=== PATIENT | female | born 1960 | race Caucasian/White ===

== ENCOUNTER 2020-04-29 13:34 | Inpatient (IN) | payer BC, OTHER ==
[~2020-04-29] VITALS: Ht 165.1 cm; Wt 92.1 kg
[2020-04-29 13:36] VITALS: BP 209/98
[2020-04-29] MEDS ORDERED: ASA81BEC PO (13:53)
[2020-04-29] MEDS ORDERED: CARVEDILOL25 MG PO (13:55)
[2020-04-29] MEDS ORDERED: ISOSORBIDE DINI30 MG PO (13:55)
[2020-04-29] MEDS ORDERED: CALCITRIOL0.25 MCG PO (13:56)
[2020-04-29] MEDS ORDERED: FOSINOPRIL 10 M10 M1 PO (13:57)
[2020-04-29] MEDS ORDERED: FUROSEMIDE 40 M40 MG PO (13:57)
[2020-04-29] MEDS ORDERED: LANTUS SUBQ (13:57)
[2020-04-29] MEDS ORDERED: RENVELA0.8 GM PO (13:58)
[2020-04-29] MEDS ORDERED: MACROBID 100 M100 MG PO (13:59)
[2020-04-29] MEDS ORDERED: CIPRO250 M2 PO (13:59)
[2020-04-29 14:27] LABS: ABSOLUTE NEUTROPHILS 7.7 thou/uL (1.4-8.2); BASOPHILS 0.5 % (0.0-2.0); EOSINOPHILS 0.9 % (0.0-3.0); HEMATOCRIT 26.9 % (37.0-47.0); HEMOGLOBIN 9.1 gm/dL (12.0-15.0); LYMPHOCYTES 6.7 % (24.0-44.0); MCH 29.9 pg (26.0-34.0); MONOCYTES 4.9 % (1.0-8.0); PLATELET COUNT 249 thou/uL (150-400); RBC 3.05 mil/uL (4.20-5.00); WBC 8.8 thou/uL (4.0-11.0)
[2020-04-29 14:31] LABS: CALCIUM 9.3 mg/dL (8.5-10.1); CREATININE 8.1 mg/dL (0.6-1.0); POTASSIUM 5.7 mmol/L (3.5-5.1)
[2020-04-29 14:41] LABS: ALBUMIN 2.7 g/dL (3.4-5.0); TOTAL BILIRUBIN 0.3 mg/dL (0.2-1.0); TOTAL PROTEIN 7.2 g/dL (6.4-8.2)
[2020-04-29 14:48] LABS: TROPONIN-I 1.19 ng/mL (<0.06)
[2020-04-29 15:29] LABS: HCO3 14.1 mmol/L (22.0-26.0); PCO2 VENOUS 29.1 mmHg (41.0-51.0); PO2 VENOUS 70.7 mmHg (35.0-45.0)
[2020-04-30 05:06] LABS: URINE BILIRUBIN NEGATIVE (Negative); URINE BLOOD 3+ (Negative); URINE CLARITY SL CLOUDY; URINE COLOR YELLOW; URINE GLUCOSE-RANDOM* 1+ (Negative); URINE KETONES NEGATIVE (Negative); URINE NITRITE-REFLEX NEGATIVE (Negative); URINE PROTEIN (DIPSTICK) 3+ (Negative); URINE UROBILINOGEN 0.2 E.U./dl (0.2-1.0)
[2020-04-30 05:24] LABS: URINE LEUKOCYTES-REFLEX 2+ (Negative)
[2020-04-30 05:25] LABS: SQUAMOUS >10 Many /LPF (0-3)
[2020-04-30 05:26] LABS: CASTS None Seen /LPF (None Seen); CRYSTALS None Seen /LPF (None Seen)
[2020-04-30] MEDS ORDERED: IMDUR 30 MG TAB30 M1 PO (06:02)
--- NOTE | 2020-04-30 07:26 | EKG ---
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: AT : 1960 Requested By: Donis Reyes Order Number: [id number] MD: Kaleb Arnett Measurements Intervals [place] Rate: 109 P: 59 RI: 139 QRS: -38 QRSD: 139 T: 130 QT: 377 QTc: 508 Interpretive Statements Sinus tachycardia Left bundle branch block Baseline wander in lead(s) V3 No previous ECG available for comparison Electronically Signed On 04-30-2020 7:26:06 MACHINE PRINTER by Kaleb Arnett [email or web address] <ELECTRONICALLY SIGNED> By: Kaleb Arnett MD, [facility] 04/30/20 0726 1410 1410 Kaleb Arnett MD, FACC /EPI
[2020-04-30 08:18] LABS: MAGNESIUM 2.1 mg/dL (1.8-2.4)
[2020-04-30 08:20] LABS: TROPONIN-I 3.46 ng/mL (<0.06)
--- NOTE | 2020-04-30 09:06 | NUR ---
PT AGREEABLE TO IN-PATIENT STAY PER DR RICE. DR PRADO PAGED AND NOTIFIED FOR DAILYSIS TRMT. MESSAGE CONVEYED TO PT FROM JOHAN THAT DIALYSIS WILL BEGIN BETWEEN [phone] HOURS TODAY. PT TOLD THIS NURSE "I WILL NOT WAIT UNTIL THEN, I WANT TO LEAVE THIS HOSPITAL AND GO SEE MY PCP". DR SARAHI JULES MADE AWARE, STATES HE WILL COMMUNICATE WITH DR RICE.
[2020-04-30 09:17] LABS: CHOLESTEROL 213 mg/dL (<200); HDL CHOLESTEROL 42 mg/dL (>40); LDL CHOLESTEROL 118 mg/dL (<100); TC:HDL 5.1 Ratio (Not establshd); TRIGLYCERIDE 266 mg/dL (<150); VLDL 53 mg/dL (<40)
--- NOTE | 2020-04-30 09:24 | NUR ---
PT AGREEABLE TO TRANSFER TO [facility] FOR CONT. CARE AND DIALYSIS TRMT. 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
[2020-04-30 11:10] LABS: CALCIUM 9.4 mg/dL (8.5-10.1); CREATININE 8.8 mg/dL (0.6-1.0); POTASSIUM 5.5 mmol/L (3.5-5.1)
--- NOTE | 2020-04-30 13:00 | NUR ---
[facility]: ([facility]) [phone] CONFIRMED ROOM 310
--- NOTE | 2020-04-30 13:23 | NUR ---
EMS TRANSPORTATION TO [facility] ARRANGED, REPORTED THAT ETA IS "WITHIN AN HOUR". PATIENT MADE AWARE.
[2020-04-30 13:55] LABS: ALBUMIN 2.7 g/dL (3.4-5.0); CALCIUM 8.9 mg/dL (8.5-10.1); CREATININE 8.6 mg/dL (0.6-1.0); PHOSPHORUS 10.2 mg/dL (2.6-4.7); POTASSIUM 5.5 mmol/L (3.5-5.1)
[2020-04-30 15:25] VITALS: BP 136/71
== END 2020-04-30 15:58 | disposition short-term general hospital (02) | DRG 280 ==
LOC: ER 13:34 → EROBS 18:17
PROVIDERS: Emergency Medicine; Internal Medicine Cardiovascular Disease; Nurse Practitioner; ADMIT Hospitalist; ATTEND Hospitalist
PROC: 3E1M39Z Irrigation of Peritoneal Cavity using Dialysate, Percutaneous Approach (ICD-10-PCS; principal; 2020-04-30)
DX: I21.4 Non-ST elevation (NSTEMI) myocardial infarction (principal); K65.9 Peritonitis, unspecified; N18.6 End stage renal disease; I12.0 Hypertensive chronic kidney disease with stage 5 chronic kidney disease or end stage renal disease; I16.0 Hypertensive urgency; I49.5 Sick sinus syndrome; Z20.822 Contact with and (suspected) exposure to COVID-19; E87.5 Hyperkalemia; D63.8 Anemia in other chronic diseases classified elsewhere; E78.5 Hyperlipidemia, unspecified; I25.5 Ischemic cardiomyopathy; E11.22 Type 2 diabetes mellitus with diabetic chronic kidney disease; K43.9 Ventral hernia without obstruction or gangrene; Z88.0 Allergy status to penicillin; Z88.8 Allergy status to other drugs, medicaments and biological substances; Z79.82 Long term (current) use of aspirin; Z79.899 Other long term (current) drug therapy; Z95.1 Presence of aortocoronary bypass graft; Z99.2 Dependence on renal dialysis
CPT/HCPCS: 33000

== ENCOUNTER 2020-09-08 23:00 | Inpatient (IN) | payer BC, OTHER ==
[~2020-09-08] VITALS: Ht 165.1 cm; Wt 81.2 kg
--- NOTE | ~2020-09-08 | O ---
[facility] [place] [address] OPERATIVE REPORT Name: GARCIA MILIAN Room #: 450-P ADM IN M.R.#: [id number] Admission: 09/09/20 Attend Phys: Gisela Gonzalez MD Discharge: Date of : 58 Report #: [id number] THIS REPORT FOR: cc: FAM - Family physician unknown FAM - Family physician unknown Misael Cruz MD ~ DOC #: [id number] Misael Cruz MD DATE OF SERVICE: 09/09/2020 PREOPERATIVE DIAGNOSIS: Incarcerated ventral incisional hernia. POSTOPERATIVE DIAGNOSIS: Incarcerated ventral incisional hernia. PROCEDURE: Laparoscopic repair of incarcerated ventral incisional hernia with mesh. SURGEON: Misael Cruz MD ANESTHESIA: General. ESTIMATED BLOOD LOSS: Minimal. SPECIMEN: None. DESCRIPTION OF PROCEDURE: After informed consent was obtained, the patient was brought to the operating room and placed supine. SCDs were placed and working. Preoperative antibiotics were administered. General anesthesia was induced. The abdomen was prepped and draped in the usual sterile fashion. A 5 mm incision was made in the left upper quadrant. A 5 mm trocar was placed under direct vision in the left upper quadrant. Pneumoperitoneum was established. Left-sided 5 mm trocar and a right-sided 8 mm trocar was placed. The hernia defect was visualized. This measured approximately 3 cm. I was able to reduce the small bowel. This did reduce. I was able to examine the bowel completely and there was no evidence of bowel ischemia. I then inserted an 11 cm Bard Ventralight mesh. It was placed in the abdomen and brought out through the abdominal wall. It was tacked with 25 absorbable tacks to cover the defect widely. A transfascial [place] suture was placed in the superior aspect of the mesh using a suture passer. The ports were then removed under direct vision. The skin was closed with 4-0 Monocryl. Incisions were dressed with Steri-Strips. COMPLICATIONS: None. DISPOSITION: The patient was taken to recovery in satisfactory condition. [address] [address] OPERATIVE REPORT Name: GARCIA MILIAN Room #: 450- ADM IN M.R.#: [id number] Admission: 09/09/20 Attend Phys: Gisela Gonzalez MD Discharge: Date of : 58 Report #: [id number] Misael Cruz MD JDP/KDA By: [id number] Misael Cruz MD /nt
[~2020-09-08 23:00] MED LIST: ASA81BEC PO; CALCITRIOL0.25 MCG PO; CARVEDILOL25 MG PO; CIPRO250 M2 PO; FOSINOPRIL 10 M10 M1 PO; FUROSEMIDE 40 M40 MG PO; IMDUR 30 MG TAB30 M1 PO; ISOSORBIDE DINI30 MG PO; LANTUS SUBQ; MACROBID 100 M100 MG PO; RENVELA0.8 GM PO
[2020-09-08 23:02] VITALS: BP 159/79
[2020-09-08 23:16] LABS: ABSOLUTE NEUTROPHILS 6.9 thou/uL (1.4-8.2); BASOPHILS 1.1 % (0.0-2.0); EOSINOPHILS 2.6 % (0.0-3.0); HEMATOCRIT 28.4 % (37.0-47.0); HEMOGLOBIN 9.9 gm/dL (12.0-15.0); LYMPHOCYTES 17.2 % (24.0-44.0); MCHC 34.8 g/dL (28.0-37.0); MCV 89.1 fL (80.0-100.0); MONOCYTES 12.2 % (1.0-8.0); PLATELET COUNT 355 thou/uL (150-400); POLYS 66.9 % (36.0-66.0); RBC 3.19 mil/uL (4.20-5.00); RDW 15.9 % (10.5-14.5); WBC 10.4 thou/uL (4.0-11.0)
[2020-09-08 23:22] LABS: ANION GAP 11 mmol/L (7-16); BUN 21 mg/dL (7-18); CALCIUM 8.4 mg/dL (8.5-10.1); CHLORIDE 94 mmol/L (98-107); CO2 28 mmol/L (21-32); CREATININE 4.7 mg/dL (0.6-1.0); GLUCOSE 179 mg/dL (74-106); POTASSIUM 3.2 mmol/L (3.5-5.1); SODIUM 133 mmol/L (136-145)
[2020-09-08 23:33] LABS: ALBUMIN 2.4 g/dL (3.4-5.0); LIPASE 41 U/L (73-393); SGOT 14 U/L (15-37); SGPT 10 U/L (30-65); TOTAL BILIRUBIN 0.4 mg/dL (0.2-1.0); TOTAL PROTEIN 5.8 g/dL (6.4-8.2); TROPONIN-I <0.06 ng/mL (<0.06)
[2020-09-09 02:41] LABS: URINE BILIRUBIN NEGATIVE (Negative); URINE BLOOD 1+ (Negative); URINE CLARITY CLOUDY; URINE COLOR YELLOW; URINE GLUCOSE-RANDOM* 2+ (Negative); URINE KETONES NEGATIVE (Negative); URINE LEUKOCYTES-REFLEX 3+ (Negative); URINE NITRITE-REFLEX NEGATIVE (Negative); URINE PROTEIN (DIPSTICK) 2+ (Negative); URINE SPECIFIC GRAVITY 1.015 (1.005-1.035); URINE UROBILINOGEN 0.2 E.U./dl (0.2-1.0)
[2020-09-09 02:42] VITALS: BP 167/71
[2020-09-09] MEDS ORDERED: NEURONTIN 300M300 M2 PO (02:44)
[2020-09-09] MEDS ORDERED: AMITRIPTYLINE H50 M2 PO (02:44)
[2020-09-09] MEDS ORDERED: CLOPIDOGREL75 MG PO (02:44)
[2020-09-09] MEDS ORDERED: MELATONIN10 M2 PO (02:47)
[2020-09-09] MEDS ORDERED: SENNA PLUS TAB1 EACH PO (02:48)
[2020-09-09] MEDS ORDERED: ONDANSETRON HCL4 M2 PO (02:50)
[2020-09-09 02:55] LABS: SQUAMOUS 0-3 Few /LPF (0-3); WBC CLUMPS Packed (None Seen)
[2020-09-09 02:56] LABS: BACTERIA-REFLEX >30 Many /HPF (None Seen); CASTS None Seen /LPF (None Seen); CRYSTALS None Seen /LPF (None Seen); MUCUS 0-3 Light strn/LPF (None Seen); URINE RBC 3-10 Few /HPF (NONE SEEN); URINE WBC-REFLEX >25 Many /HPF (0-5)
[2020-09-09 03:02] VITALS: BP 167/71
[2020-09-09 04:37] VITALS: BP 165/96
--- NOTE | 2020-09-09 07:19 | EKG ---
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
[2020-09-09 16:30] VITALS: BP 150/78
[2020-09-09 19:30] VITALS: BP 117/58
[2020-09-09 19:31] LABS: COLOR AMBER; SOURCE ABDOMINAL; TOTAL VOLUME 45 mL
[2020-09-09 19:32] LABS: BF NUCLEATED CELLS 4755 /mm3; BF RBC 3188 /mm3; CLARITY CLOUDY
[2020-09-09 20:09] LABS: BF MACROPHAGE 1 %; BF NEUTROPHILS 75 %
[2020-09-10 08:12] VITALS: BP 135/81
[2020-09-10 15:56] VITALS: BP 140/65
[2020-09-10 20:20] VITALS: BP 127/67
[2020-09-11 07:10] VITALS: BP 136/71
[2020-09-11 18:06] LABS: HEPATITIS B SURFACE AG Negative (Negative)
[2020-09-11 19:53] VITALS: BP 137/74
[2020-09-12 07:38] VITALS: BP 157/96
[2020-09-12] MEDS ORDERED: ZOFRAN 4 MG ORAL4 MG PO (11:04)
[2020-09-12 11:11] VITALS: BP 157/96
[2020-09-12 11:26] VITALS: BP 157/96
== END 2020-09-12 11:50 | disposition home health service (06) | DRG 853 ==
LOC: ER 23:00 → 4W 09-09 02:14 → EROBS 09-09 02:14 → 4W 09-09 03:03
PROVIDERS: Emergency Medicine; Hospitalist; ADMIT Hospitalist; ATTEND Hospitalist
PROC: 0WUF4JZ Supplement Abdominal Wall with Synthetic Substitute, Percutaneous Endoscopic Approach (ICD-10-PCS; principal; 2020-09-09)
PROC: 3E1M39Z Irrigation of Peritoneal Cavity using Dialysate, Percutaneous Approach (ICD-10-PCS; 2020-09-10)
PROC: 5A1D70Z Performance of Urinary Filtration, Intermittent, Less than 6 Hours Per Day (ICD-10-PCS; 2020-09-10)
PROC: 5A1D70Z Performance of Urinary Filtration, Intermittent, Less than 6 Hours Per Day (ICD-10-PCS; 2020-09-12)
PROC: 3E1M39Z Irrigation of Peritoneal Cavity using Dialysate, Percutaneous Approach (ICD-10-PCS; 2020-09-12)
DX: A41.9 Sepsis, unspecified organism (principal); N18.6 End stage renal disease; K65.9 Peritonitis, unspecified; E43 Unspecified severe protein-calorie malnutrition; K42.0 Umbilical hernia with obstruction, without gangrene; N39.0 Urinary tract infection, site not specified; I12.0 Hypertensive chronic kidney disease with stage 5 chronic kidney disease or end stage renal disease; I25.10 Atherosclerotic heart disease of native coronary artery without angina pectoris; K43.9 Ventral hernia without obstruction or gangrene; E11.22 Type 2 diabetes mellitus with diabetic chronic kidney disease; L89.621 Pressure ulcer of left heel, stage 1; L89.611 Pressure ulcer of right heel, stage 1; L97.519 Non-pressure chronic ulcer of other part of right foot with unspecified severity; R53.81 Other malaise; E11.51 Type 2 diabetes mellitus with diabetic peripheral angiopathy without gangrene; B96.20 Unspecified Escherichia coli [E. coli] as the cause of diseases classified elsewhere; Z20.822 Contact with and (suspected) exposure to COVID-19; Z88.0 Allergy status to penicillin; Z88.8 Allergy status to other drugs, medicaments and biological substances; Z95.0 Presence of cardiac pacemaker; Z90.49 Acquired absence of other specified parts of digestive tract; Z68.29 Body mass index [BMI] 29.0-29.9, adult; Z79.899 Other long term (current) drug therapy
CPT/HCPCS: 10047; 32100; 33000; 50101; 50386; 50555; 50687; 50980; 52265; 52266; 53307; 54022; 56462; 56525; 56526; 56530; 57092; 58574; 62110; 62900; 70005